=== PATIENT | female | born 1975 | race Caucasian/White ===

== ENCOUNTER → 2016-09-24 | Day surgery (SDC) | payer MEDICARE, MEDICAID ==
[~2016-09-24] VITALS: Ht 157.5 cm; Wt 106.6 kg
[~2016-09-24] MED LIST: ATOR10TA PO; BENA40TA3 PO; CITA20TA11 PO; CLON1TAB4 PO; FENTANYL CITRATE/PF 50MCG/ML 2ML VIAL ONE; FERR-63 PO; GABA-290 PO; HYDROMORPHONE HCL/PF 2MG/ML CPJ IV PRN; INSU3INS6 SQ; LACTATED RINGERS 1,000 ML IV SCH; LEVO750T46 PO; LIDOCAINE HCL 1% 20ML VIAL (Pyxis) INJ ONE; METF10002 PO; METO50TA5 PO; MIDAZOLAM HCL 2 MG/2 ML VIAL ONE; ONDANSETRON HCL 4MG/2ML VIAL IV PRN; OXYB5TAB PO; PROPOFOL 200MG/20ML VIAL IV ONE; SULF-104 PO; TRAZ-129 PO
== END | disposition home or self-care (01) ==
LOC: OR 11:00
PROVIDERS: ATTEND Internal Medicine Gastroenterology
DX: D12.2 Benign neoplasm of ascending colon (principal); D12.3 Benign neoplasm of transverse colon; K64.8 Other hemorrhoids; K29.50 Unspecified chronic gastritis without bleeding; E11.9 Type 2 diabetes mellitus without complications; I10 Essential (primary) hypertension; J44.9 Chronic obstructive pulmonary disease, unspecified; E78.4 Other hyperlipidemia; D53.8 Other specified nutritional anemias
CPT/HCPCS: 43239; 45385; 82962; 88305; 88312; 88313; J2250; J3010; J3490; J7120; J2704